=== PATIENT | female | born 1930 | race Caucasian/White ===

== ENCOUNTER 2018-03-25 17:07 | Inpatient (IN) ==
[2018-03-25] MEDS ORDERED: ONDANSETRON 4 MG/2 ML VIAL IV STA (17:55)
[2018-03-25] MEDS ORDERED: ASPIRIN 325 MG TABLET PO STA (17:55)
[2018-03-25] MEDS ORDERED: MORPHINE 4 MG/1 ML VIAL IV STA (17:55)
[2018-03-25] MEDS ORDERED: NITROGLYCERIN 2% OINT 1 INCH/GM PACK TOP STA (17:55)
[2018-03-25] MEDS ORDERED: ALUM/MAG/SIMETH/LIDO VISC 1:1 30 ML BOTTLE PO STA (17:55)
[2018-03-25 18:03] LABS: Basophils # 0.1 10*3/uL (0.0-0.2); Basophils % 1.3 % (0.0-0.8); Eosinophils # 0.6 10*3/uL (0.0-0.87); Eosinophils % 10.8 % (0.00-10.9); Hemoglobin 12.3 GM/DL (12.0-16.0); Immature Granulocytes % 0.4 %; Immature Granulocytes Absolute 0.02 #; Lymphocytes % 18.1 % (21.3-54.2); Mean Corpuscular HGB Conc 32.4 GM/DL (32-36); Mean Corpuscular Hemoglobin 31 PG (27-34); Mean Corpuscular Volume 95.7 FL (87-102); Monocytes # 0.5 10*3/uL (0.11-0.8); Monocytes % 9.5 % (1.7-12.7); Neutrophils # 3.3 10*3/uL (1.4-7.4); Neutrophils % 59.9 % (38.7-73.9); Platelet Count 230 T/CUMM (130-400); Red Blood Count 3.97 MC/CUMM (3.8-5.5); Red Cell Distribution Width 13.2 % (9.3-17.3); White Blood Count 5.6 T/CUMM (4-12)
[2018-03-25 18:14] LABS: PT Patient Result 10.3 SECS
[2018-03-25 18:18] LABS: Alanine Aminotransferase 39 U/L (13-56); Albumin 3.2 G/DL (3.4-5.0); Alkaline Phosphatase 74 U/L (45-117); Aspartate Amino Transferase 29 U/L (0-37); Bilirubin,Total < 0.39 MG/DL (0.2-1.0); Blood Urea Nitrogen 39 MG/DL (7-18); Calcium 8.5 MG/DL (8.5-10.1); Glucose 121 MG/DL (74-106); Osmolality,Calculated 290.3 MOS/KG (273-304); Potassium 3.8 MMOL/L (3.5-5.1); Sodium 141 MMOL/L (136-145); Total Protein 7.2 G/DL (6.4-8.3)
[2018-03-25] MEDS ORDERED: GLYCERIN BOTH EYES PRN (20:15)
[2018-03-25] MEDS ORDERED: MELOXICAM 7.5 MG TABLET PO PRN (20:15)
[2018-03-25] MEDS ORDERED: PROMETHAZINE 25 MG TABLET PO PRN (20:15)
[2018-03-25] MEDS ORDERED: ACETAMINOPHEN 325 MG TABLET PO PRN (20:15)
[2018-03-25] MEDS ORDERED: MORPHINE 4 MG/1 ML VIAL IV PRN (20:15)
[2018-03-25] MEDS ORDERED: ONDANSETRON 4 MG/2 ML VIAL IV PRN (20:15)
[2018-03-25] MEDS ORDERED: NAPHAZOLINE HCL BOTH EYES PRN (20:15)
[2018-03-25] MEDS: LUBIPROSTONE 8 MCG CAPSULE PO SCH (22:10)
[2018-03-25] MEDS: MEMANTINE 5 MG TABLET PO SCH (22:10)
[2018-03-25] MEDS: MAGNESIUM CHLORIDE 64 MG TABLET PO SCH (22:10)
[2018-03-25] MEDS: MULTIVITAMIN (OCUVITE) TABLET PO SCH (22:10)
[2018-03-25] MEDS: ENOXAPARIN 60 MG/0.6 ML SYRINGE SUBCUT SCH (22:11)
[2018-03-25] MEDS: DOCUSATE SODIUM 100 MG CAPSULE PO SCH (22:11)
[2018-03-25] MEDS: POTASSIUM GLUCONATE 500 MG TABLET PO SCH (22:11)
[2018-03-25] MEDS: SODIUM CHLORIDE 0.9% 1,000 ML IV SCH (22:30)
[2018-03-26] MEDS: NITROGLYCERIN 2% OINT 1 INCH/GM PACK TOP SCH ×4 (00:29→17:37)
[2018-03-26 00:43] LABS: Basophils # 0.1 10*3/uL (0.0-0.2); Basophils % 0.9 % (0.0-0.8); Eosinophils # 0.7 10*3/uL (0.0-0.87); Eosinophils % 12.3 % (0.00-10.9); Hematocrit 34.4 VOL% (35.7-47.0); Hemoglobin 11.5 GM/DL (12.0-16.0); Immature Granulocytes % 0.3 %; Immature Granulocytes Absolute 0.02 #; Lymphocytes # 1.2 10*3/uL (1.4-4.0); Lymphocytes % 21.2 % (21.3-54.2); Mean Corpuscular HGB Conc 33.4 GM/DL (32-36); Mean Corpuscular Hemoglobin 31 PG (27-34); Mean Corpuscular Volume 93.7 FL (87-102); Mean Platelet Volume 10.6 FL (9.6-12.0); Monocytes # 0.8 10*3/uL (0.11-0.8); Monocytes % 13.1 % (1.7-12.7); Neutrophils % 52.2 % (38.7-73.9); Platelet Count 228 T/CUMM (130-400); Red Blood Count 3.67 MC/CUMM (3.8-5.5); Red Cell Distribution Width 13.3 % (9.3-17.3); White Blood Count 5.8 T/CUMM (4-12)
[2018-03-26 01:07] LABS: Eosinophils 16 % (0-10); Lymphocytes 30 % (20-55); Segmented Neutrophils 48 % (50-85); Total Cells Counted 100
[2018-03-26 01:09] LABS: Giant Platelets Few; Hypochromasia 1+; Platelet Estimate Normal
[2018-03-26 01:10] LABS: Polychromasia Few
[2018-03-26 01:22] LABS: Alanine Aminotransferase 33 U/L (13-56); Albumin 2.8 G/DL (3.4-5.0); Alkaline Phosphatase 62 U/L (45-117); Aspartate Amino Transferase 21 U/L (0-37); Bilirubin,Total < 0.39 MG/DL (0.2-1.0); Blood Urea Nitrogen 47 MG/DL (7-18); Calcium 8.5 MG/DL (8.5-10.1); Cholesterol 215 MG/DL (50-200); Glucose 115 MG/DL (74-106); HDL Cholesterol 82 MG/DL (40-60); Osmolality,Calculated 295.1 MOS/KG (273-304); Potassium 3.8 MMOL/L (3.5-5.1); Risk Ratio 2.62; Sodium 142 MMOL/L (136-145); Total Protein 6.1 G/DL (6.4-8.3); Triglycerides 29 MG/DL (2-150); VLDL CHOLESTEROL 5.8 MG/DL
[2018-03-26] MEDS: LEVOTHYROXINE 88 MCG TABLET PO SCH (06:07)
[2018-03-26] MEDS ORDERED: KETOROLAC 30 MG/1 ML VIAL IV ONE (08:28)
[2018-03-26] MEDS ORDERED: LEVOFLOXACIN INJ 500 MG in PREMIX 1 EACH IV ONE (09:00)
[2018-03-26] MEDS ORDERED: PANTOPRAZOLE 40 MG TABLET PO SCH (09:00)
[2018-03-26] MEDS ORDERED: Fluticasone/Vilanterol [Breo Ellipta 200-25 Mcg Inh] INH SCH (09:00)
[2018-03-26] MEDS: GEMFIBROZIL 600 MG TABLET PO SCH ×2 (09:57→16:50)
[2018-03-26] MEDS: LUBIPROSTONE 8 MCG CAPSULE PO SCH ×2 (09:58→21:35)
[2018-03-26] MEDS: DOCUSATE SODIUM 100 MG CAPSULE PO SCH ×2 (09:58→21:35)
[2018-03-26] MEDS: FERROUS SULFATE 325 MG TABLET PO SCH (09:58)
[2018-03-26] MEDS: FLUTICASONE 50 MCG NASAL SPRAY 16 GM BOTTLE BOTH NARES SCH (09:58)
[2018-03-26] MEDS: MULTIVITAMIN (CENTRUM) TABLET PO SCH (09:59)
[2018-03-26] MEDS: POTASSIUM GLUCONATE 500 MG TABLET PO SCH ×2 (09:59→21:35)
[2018-03-26] MEDS: MULTIVITAMIN (OCUVITE) TABLET PO SCH ×2 (09:59→21:35)
[2018-03-26] MEDS: ENOXAPARIN 60 MG/0.6 ML SYRINGE SUBCUT SCH ×2 (09:59→21:34)
[2018-03-26] MEDS: MEMANTINE 5 MG TABLET PO SCH ×2 (09:59→21:35)
[2018-03-26] MEDS: PANTOPRAZOLE 40 MG TABLET PO SCH (10:00)
[2018-03-26] MEDS: MAGNESIUM CHLORIDE 64 MG TABLET PO SCH ×2 (10:00→21:35)
[2018-03-26] MEDS: FUROSEMIDE 20 MG/2 ML VIAL IV SCH ×2 (10:08→16:50)
[2018-03-26] MEDS: ASPIRIN EC 81 MG TABLET PO SCH (13:17)
[2018-03-26] MEDS: SODIUM CHLORIDE 0.9% 1,000 ML IV SCH (21:35)
[2018-03-26] MEDS: CLOPIDOGREL 75 MG TABLET PO SCH (21:35)
[2018-03-27] MEDS: NITROGLYCERIN 2% OINT 1 INCH/GM PACK TOP SCH ×4 (01:21→17:32)
[2018-03-27 05:43] LABS: Basophils % 0.6 % (0.0-0.8); Eosinophils # 0.9 10*3/uL (0.0-0.87); Eosinophils % 17.1 % (0.00-10.9); Hemoglobin 9.3 GM/DL (12.0-16.0); Immature Granulocytes % 0.2 %; Immature Granulocytes Absolute 0.01 #; Lymphocytes # 0.9 10*3/uL (1.4-4.0); Lymphocytes % 17.5 % (21.3-54.2); Mean Corpuscular HGB Conc 33.2 GM/DL (32-36); Mean Corpuscular Hemoglobin 31 PG (27-34); Mean Corpuscular Volume 94.3 FL (87-102); Mean Platelet Volume 11.3 FL (9.6-12.0); Monocytes # 0.6 10*3/uL (0.11-0.8); Monocytes % 12.5 % (1.7-12.7); Neutrophils # 2.6 10*3/uL (1.4-7.4); Neutrophils % 52.1 % (38.7-73.9); Platelet Count 160 T/CUMM (130-400); Red Blood Count 2.97 MC/CUMM (3.8-5.5); Red Cell Distribution Width 13.4 % (9.3-17.3)
[2018-03-27] MEDS: LEVOTHYROXINE 88 MCG TABLET PO SCH (06:08)
[2018-03-27 06:19] LABS: Calcium 8.5 MG/DL (8.5-10.1); Osmolality,Calculated 300.7 MOS/KG (273-304); Potassium 3.7 MMOL/L (3.5-5.1)
[2018-03-27 07:35] LABS: Band Neutrophils 1 % (0-10); Eosinophils 7 % (0-10); Lymphocytes 11 % (20-55); Platelet Estimate Adequate; Polychromasia Slight; Segmented Neutrophils 77 % (50-85); Total Cells Counted 100
[2018-03-27] MEDS ORDERED: REGADENOSON 0.4 MG/5 ML SYRINGE IV ONE (09:02)
[2018-03-27] MEDS: FUROSEMIDE 20 MG/2 ML VIAL IV SCH (09:44)
[2018-03-27] MEDS: MULTIVITAMIN (OCUVITE) TABLET PO SCH ×2 (09:44→21:17)
[2018-03-27] MEDS: POTASSIUM GLUCONATE 500 MG TABLET PO SCH ×2 (09:44→21:17)
[2018-03-27] MEDS: GEMFIBROZIL 600 MG TABLET PO SCH ×2 (09:44→16:22)
[2018-03-27] MEDS: DOCUSATE SODIUM 100 MG CAPSULE PO SCH ×2 (09:44→21:18)
[2018-03-27] MEDS: MEMANTINE 5 MG TABLET PO SCH ×2 (09:44→21:17)
[2018-03-27] MEDS: MAGNESIUM CHLORIDE 64 MG TABLET PO SCH ×2 (09:45→21:17)
[2018-03-27] MEDS: PANTOPRAZOLE 40 MG TABLET PO SCH (09:45)
[2018-03-27] MEDS: MULTIVITAMIN (CENTRUM) TABLET PO SCH (09:45)
[2018-03-27] MEDS: LEVOFLOXACIN INJ 250 MG in PREMIX 1 EACH IV SCH (09:45)
[2018-03-27] MEDS: LUBIPROSTONE 8 MCG CAPSULE PO SCH ×2 (09:45→21:20)
[2018-03-27] MEDS: FERROUS SULFATE 325 MG TABLET PO SCH (09:45)
[2018-03-27] MEDS: FLUTICASONE 50 MCG NASAL SPRAY 16 GM BOTTLE BOTH NARES SCH (09:46)
[2018-03-27] MEDS: ASPIRIN EC 81 MG TABLET PO SCH (12:09)
[2018-03-27] MEDS: METOPROLOL SUCCINATE XL 25 MG TABLET PO SCH (16:22)
[2018-03-27] MEDS ORDERED: ENOXAPARIN 30 MG/0.3 ML SYRINGE SUBCUT SCH (21:00)
[2018-03-27] MEDS: CLOPIDOGREL 75 MG TABLET PO SCH (21:18)
[2018-03-28] MEDS: NITROGLYCERIN 2% OINT 1 INCH/GM PACK TOP SCH ×3 (00:01→12:33)
[2018-03-28 03:31] LABS: Basophils % 0.5 % (0.0-0.8); Eosinophils # 0.8 10*3/uL (0.0-0.87); Eosinophils % 12.7 % (0.00-10.9); Hemoglobin 9.3 GM/DL (12.0-16.0); Immature Granulocytes % 0.3 %; Immature Granulocytes Absolute 0.02 #; Lymphocytes % 16.2 % (21.3-54.2); Mean Corpuscular HGB Conc 33.2 GM/DL (32-36); Mean Corpuscular Hemoglobin 31 PG (27-34); Mean Platelet Volume 11.3 FL (9.6-12.0); Monocytes # 0.7 10*3/uL (0.11-0.8); Neutrophils # 3.5 10*3/uL (1.4-7.4); Neutrophils % 59.3 % (38.7-73.9); Platelet Count 172 T/CUMM (130-400); Red Blood Count 3.01 MC/CUMM (3.8-5.5); Red Cell Distribution Width 13.4 % (9.3-17.3); White Blood Count 5.9 T/CUMM (4-12)
[2018-03-28 03:57] LABS: Calcium 8.7 MG/DL (8.5-10.1); Osmolality,Calculated 299.7 MOS/KG (273-304); Potassium 3.5 MMOL/L (3.5-5.1)
[2018-03-28 05:52] LABS: Band Neutrophils 2 % (0-10); Eosinophils 13 % (0-10); Lymphocytes 12 % (20-55); Myelocytes 2 %; Segmented Neutrophils 64 % (50-85)
[2018-03-28 05:57] LABS: Platelet Estimate Normal; Total Cells Counted 100
[2018-03-28] MEDS: LEVOTHYROXINE 88 MCG TABLET PO SCH (06:29)
[2018-03-28] MEDS: LEVOFLOXACIN INJ 250 MG in PREMIX 1 EACH IV SCH (08:39)
[2018-03-28] MEDS: METOPROLOL SUCCINATE XL 25 MG TABLET PO SCH (08:40)
[2018-03-28] MEDS: MULTIVITAMIN (OCUVITE) TABLET PO SCH (08:40)
[2018-03-28] MEDS: MULTIVITAMIN (CENTRUM) TABLET PO SCH (08:40)
[2018-03-28] MEDS: MEMANTINE 5 MG TABLET PO SCH (08:40)
[2018-03-28] MEDS: FLUTICASONE 50 MCG NASAL SPRAY 16 GM BOTTLE BOTH NARES SCH (08:41)
[2018-03-28] MEDS: DOCUSATE SODIUM 100 MG CAPSULE PO SCH (08:41)
[2018-03-28] MEDS: GEMFIBROZIL 600 MG TABLET PO SCH ×2 (08:41→16:30)
[2018-03-28] MEDS: LUBIPROSTONE 8 MCG CAPSULE PO SCH (08:41)
[2018-03-28] MEDS: POTASSIUM GLUCONATE 500 MG TABLET PO SCH (08:41)
[2018-03-28] MEDS: MAGNESIUM CHLORIDE 64 MG TABLET PO SCH (08:41)
[2018-03-28] MEDS: PANTOPRAZOLE 40 MG TABLET PO SCH (08:41)
[2018-03-28] MEDS: FERROUS SULFATE 325 MG TABLET PO SCH (08:41)
[2018-03-28] MEDS ORDERED: FUROSEMIDE 20 MG TABLET PO SCH (09:00)
[2018-03-28] MEDS: ASPIRIN EC 81 MG TABLET PO SCH (12:34)
[2018-03-28 16:26] VITALS: BP 122/65
== END 2018-03-28 17:53 | disposition home or self-care (01) | DRG 313 ==
LOC: EDBD → EDUNIT# → N.ED 17:07 → N.EDINP 19:02 → N.TELES 20:43
PROVIDERS: ADMIT Internal Medicine; ATTEND Internal Medicine

== ENCOUNTER 2018-11-14 18:49 | Observation (INO) ==
[2018-11-14] MEDS ORDERED: MORPHINE 4 MG/1 ML VIAL IV STA (19:11)
[2018-11-14] MEDS ORDERED: ONDANSETRON 4 MG/2 ML VIAL IV STA (19:11)
[2018-11-14 19:24] LABS: Basophils % 0.9 % (0.0-0.8); Eosinophils # 0.3 10*3/uL (0.0-0.87); Eosinophils % 7.6 % (0.00-10.9); Hematocrit 31.8 VOL% (35.7-47.0); Hemoglobin 10.2 GM/DL (12.0-16.0); Immature Granulocytes % 0.2 %; Immature Granulocytes Absolute 0.01 #; Lymphocytes % 23.1 % (21.3-54.2); Mean Corpuscular HGB Conc 32.1 GM/DL (32-36); Mean Corpuscular Hemoglobin 30 PG (27-34); Mean Corpuscular Volume 94.1 FL (87-102); Mean Platelet Volume 10.2 FL (9.6-12.0); Monocytes # 0.6 10*3/uL (0.11-0.8); Monocytes % 12.6 % (1.7-12.7); Neutrophils # 2.4 10*3/uL (1.4-7.4); Neutrophils % 55.6 % (38.7-73.9); Platelet Count 193 T/CUMM (130-400); Red Blood Count 3.38 MC/CUMM (3.8-5.5); White Blood Count 4.4 T/CUMM (4-12)
[2018-11-14 19:28] LABS: Apearance,Urine CLEAR (Clear); Bilirubin,Urine Negative (Negative); Blood, Urine Negative (Negative); Glucose,Urine (UA) Negative (Negative); Ketones,Urine Negative (Negative); Nitrite,Urine Negative (Negative); Protein,Urine Negative; RBC,Urine 1 /HPF (0-4); Squamous Epithelial Cell,Urine Occasional /HPF (0-10); Urine Color Straw (Yellow); Urine Specific Gravity 1.004 (1.001-1.035); Urine Urobilinogen < 2.0 EU/DL (0.2-1.0); WBC,Urine 2 /HPF (0-6)
[2018-11-14 19:46] LABS: Albumin 3.3 G/DL (3.4-5.0); Bilirubin,Total 0.4 MG/DL (0.2-1.0); Calcium 9.3 MG/DL (8.5-10.1); Osmolality,Calculated 279.4 MOS/KG (273-304); Potassium 3.8 MMOL/L (3.5-5.1); Total Protein 7.5 G/DL (6.4-8.3)
[2018-11-14] MEDS ORDERED: ONDANSETRON 4 MG/2 ML VIAL IV PRN (21:40)
[2018-11-14] MEDS ORDERED: ACETAMINOPHEN 325 MG TABLET PO PRN (21:40)
[2018-11-14] MEDS: oxyCODONE/ACETAMINOPHEN 5-325 MG TABLET PO PRN (22:33)
[2018-11-15 01:12] LABS: Basophils % 0.8 % (0.0-0.8); Eosinophils # 0.4 10*3/uL (0.0-0.87); Eosinophils % 9.4 % (0.00-10.9); Hematocrit 28.2 VOL% (35.7-47.0); Hemoglobin 8.8 GM/DL (12.0-16.0); Immature Granulocytes % 0.5 %; Immature Granulocytes Absolute 0.02 #; Lymphocytes # 0.9 10*3/uL (1.4-4.0); Lymphocytes % 23.1 % (21.3-54.2); Mean Corpuscular HGB Conc 31.2 GM/DL (32-36); Mean Corpuscular Hemoglobin 30 PG (27-34); Mean Corpuscular Volume 95.3 FL (87-102); Mean Platelet Volume 10.6 FL (9.6-12.0); Monocytes # 0.5 10*3/uL (0.11-0.8); Monocytes % 12.9 % (1.7-12.7); Neutrophils % 53.3 % (38.7-73.9); Platelet Count 178 T/CUMM (130-400); Red Blood Count 2.96 MC/CUMM (3.8-5.5); White Blood Count 3.8 T/CUMM (4-12)
[2018-11-15 01:25] LABS: Albumin 2.8 G/DL (3.4-5.0); Bilirubin,Total 0.8 MG/DL (0.2-1.0); Calcium 8.6 MG/DL (8.5-10.1); Osmolality,Calculated 282.3 MOS/KG (273-304); Potassium 3.7 MMOL/L (3.5-5.1); Total Protein 6.1 G/DL (6.4-8.3)
[2018-11-15] MEDS: PANTOPRAZOLE 40 MG TABLET PO SCH (08:45)
[2018-11-15] MEDS: ASPIRIN EC 81 MG TABLET PO SCH (12:30)
[2018-11-15] MEDS: MULTIVITAMIN (CENTRUM) TABLET PO SCH (12:30)
[2018-11-15] MEDS: GEMFIBROZIL 600 MG TABLET PO SCH (16:13)
[2018-11-15] MEDS ORDERED: CLOPIDOGREL 75 MG TABLET PO SCH (19:00)
[2018-11-15] MEDS: LUBIPROSTONE 8 MCG CAPSULE PO SCH (20:36)
[2018-11-15] MEDS: CILOSTAZOL 50 MG TABLET PO SCH (20:36)
[2018-11-15] MEDS: oxyCODONE/ACETAMINOPHEN 5-325 MG TABLET PO PRN (20:36)
[2018-11-15] MEDS: CLOPIDOGREL 75 MG TABLET PO SCH (20:36)
[2018-11-16] MEDS: LEVOTHYROXINE 88 MCG TABLET PO SCH (06:10)
[2018-11-16] MEDS: PANTOPRAZOLE 40 MG TABLET PO SCH (08:12)
[2018-11-16] MEDS: CILOSTAZOL 50 MG TABLET PO SCH ×2 (08:12→20:57)
[2018-11-16] MEDS: ROSUVASTATIN 20 MG TABLET PO SCH (08:12)
[2018-11-16] MEDS: FERROUS SULFATE 325 MG TABLET PO SCH (08:12)
[2018-11-16] MEDS: GEMFIBROZIL 600 MG TABLET PO SCH ×2 (08:12→16:25)
[2018-11-16] MEDS: LUBIPROSTONE 8 MCG CAPSULE PO SCH ×2 (08:12→20:57)
[2018-11-16] MEDS: MONTELUKAST 10 MG TABLET PO SCH (08:12)
[2018-11-16] MEDS: FLUTICASONE 50 MCG NASAL SPRAY 16 GM BOTTLE BOTH NARES SCH (08:13)
[2018-11-16] MEDS ORDERED: VILANTEROL INH SCH (09:00)
[2018-11-16] MEDS ORDERED: FLUTICASONE INH SCH (09:00)
[2018-11-16] MEDS: ASPIRIN EC 81 MG TABLET PO SCH (11:07)
[2018-11-16] MEDS: MULTIVITAMIN (CENTRUM) TABLET PO SCH (11:07)
[2018-11-16] MEDS: CLOPIDOGREL 75 MG TABLET PO SCH (20:57)
[2018-11-17 04:37] LABS: Basophils % 0.7 % (0.0-0.8); Eosinophils # 0.6 10*3/uL (0.0-0.87); Eosinophils % 13.6 % (0.00-10.9); Hematocrit 29.2 VOL% (35.7-47.0); Hemoglobin 9.4 GM/DL (12.0-16.0); Immature Granulocytes % 0.2 %; Immature Granulocytes Absolute 0.01 #; Lymphocytes % 21.6 % (21.3-54.2); Mean Corpuscular HGB Conc 32.2 GM/DL (32-36); Mean Corpuscular Hemoglobin 30 PG (27-34); Mean Corpuscular Volume 94.2 FL (87-102); Mean Platelet Volume 10.6 FL (9.6-12.0); Monocytes # 0.5 10*3/uL (0.11-0.8); Monocytes % 12.3 % (1.7-12.7); Neutrophils # 2.3 10*3/uL (1.4-7.4); Neutrophils % 51.6 % (38.7-73.9); Platelet Count 181 T/CUMM (130-400); White Blood Count 4.4 T/CUMM (4-12)
[2018-11-17 04:48] LABS: Calcium 8.4 MG/DL (8.5-10.1); Osmolality,Calculated 279.5 MOS/KG (273-304); Potassium 3.5 MMOL/L (3.5-5.1)
[2018-11-17 05:03] LABS: Eosinophils 12 % (0-10); Hypochromasia 1+; Lymphocytes 16 % (20-55); Platelet Estimate Adequate; Segmented Neutrophils 61 % (50-85); Total Cells Counted 100
[2018-11-17] MEDS: LEVOTHYROXINE 88 MCG TABLET PO SCH (06:15)
[2018-11-17 08:25] VITALS: BP 148/91
[2018-11-17] MEDS: MONTELUKAST 10 MG TABLET PO SCH (10:17)
[2018-11-17] MEDS: FERROUS SULFATE 325 MG TABLET PO SCH (10:17)
[2018-11-17] MEDS: LUBIPROSTONE 8 MCG CAPSULE PO SCH (10:17)
[2018-11-17] MEDS: CILOSTAZOL 50 MG TABLET PO SCH (10:17)
[2018-11-17] MEDS: PANTOPRAZOLE 40 MG TABLET PO SCH (10:17)
[2018-11-17] MEDS: FLUTICASONE 50 MCG NASAL SPRAY 16 GM BOTTLE BOTH NARES SCH (10:18)
[2018-11-17] MEDS: GEMFIBROZIL 600 MG TABLET PO SCH (10:18)
[2018-11-17] MEDS: ROSUVASTATIN 20 MG TABLET PO SCH (10:18)
== END 2018-11-17 11:18 | disposition home or self-care (01) ==
LOC: EDBD → EDUNIT# → N.EDINP 18:49 → N.ED 18:49 → N.TELES 21:11
PROVIDERS: ADMIT Internal Medicine; ATTEND Internal Medicine

== ENCOUNTER 2019-02-08 14:52 | Inpatient (IN) ==
[2019-02-08] MEDS ORDERED: NITROGLYCERIN 2% OINT 1 INCH/GM PACK TOP STA (15:14)
[2019-02-08] MEDS ORDERED: ASPIRIN 325 MG TABLET PO STA (15:14)
[2019-02-08] MEDS ORDERED: ALUM/MAG/SIMETH/LIDO VISC 1:1 30 ML BOTTLE PO STA (15:14)
[2019-02-08] MEDS ORDERED: MORPHINE 4 MG/1 ML VIAL IV STA (15:14)
[2019-02-08] MEDS ORDERED: ONDANSETRON 4 MG/2 ML VIAL IV STA (15:14)
[2019-02-08 17:25] LABS: Basophils # 0.1 10*3/uL (0.0-0.2); Eosinophils # 0.4 10*3/uL (0.0-0.87); Eosinophils % 8.1 % (0.00-10.9); Hemoglobin 10.9 GM/DL (12.0-16.0); Immature Granulocytes % 0.4 %; Immature Granulocytes Absolute 0.02 #; Lymphocytes % 19.2 % (21.3-54.2); Mean Corpuscular HGB Conc 30.3 GM/DL (32-36); Mean Corpuscular Hemoglobin 30 PG (27-34); Mean Corpuscular Volume 97.8 FL (87-102); Mean Platelet Volume 9.5 FL (9.6-12.0); Monocytes # 0.5 10*3/uL (0.11-0.8); Monocytes % 9.3 % (1.7-12.7); Neutrophils # 3.2 10*3/uL (1.4-7.4); Platelet Count 222 T/CUMM (130-400); Red Blood Count 3.68 MC/CUMM (3.8-5.5); Red Cell Distribution Width 12.8 % (9.3-17.3); White Blood Count 5.2 T/CUMM (4-12)
[2019-02-08 17:36] LABS: PT Patient Result 10.4 SECS
[2019-02-08 17:48] LABS: Albumin 3.2 G/DL (3.4-5.0); Bilirubin,Total 0.4 MG/DL (0.2-1.0); Calcium 8.8 MG/DL (8.5-10.1); Osmolality,Calculated 280.5 MOS/KG (273-304); Potassium 3.8 MMOL/L (3.5-5.1); Total Protein 6.6 G/DL (6.4-8.3)
[2019-02-08] MEDS ORDERED: ONDANSETRON 4 MG/2 ML VIAL IV PRN (19:07)
[2019-02-08] MEDS ORDERED: ACETAMINOPHEN 325 MG TABLET PO PRN (19:07)
[2019-02-08] MEDS ORDERED: PROMETHAZINE 25 MG TABLET PO PRN (19:11)
[2019-02-08] MEDS ORDERED: NAPHAZOLINE HCL BOTH EYES PRN (19:11)
[2019-02-08] MEDS ORDERED: GLYCERIN BOTH EYES PRN (19:11)
[2019-02-08 19:57] LABS: Troponin I 0.021 NG/ML (0.00-0.045)
[2019-02-08] MEDS: MAGNESIUM CHLORIDE 64 MG TABLET PO SCH (22:16)
[2019-02-08] MEDS: MONTELUKAST 10 MG TABLET PO SCH (22:16)
[2019-02-08] MEDS: LUBIPROSTONE 8 MCG CAPSULE PO SCH (22:16)
[2019-02-08] MEDS: MULTIVITAMIN (OCUVITE) TABLET PO SCH (22:17)
[2019-02-09 01:06] LABS: Troponin I 0.025 NG/ML (0.00-0.045)
[2019-02-09 04:43] LABS: Basophils # 0.1 10*3/uL (0.0-0.2); Basophils % 0.9 % (0.0-0.8); Eosinophils # 0.8 10*3/uL (0.0-0.87); Eosinophils % 14.3 % (0.00-10.9); Hematocrit 29.8 VOL% (35.7-47.0); Hemoglobin 9.5 GM/DL (12.0-16.0); Immature Granulocytes % 0.7 %; Immature Granulocytes Absolute 0.04 #; Lymphocytes % 17.4 % (21.3-54.2); Mean Corpuscular HGB Conc 31.9 GM/DL (32-36); Mean Corpuscular Hemoglobin 30 PG (27-34); Mean Corpuscular Volume 94.6 FL (87-102); Mean Platelet Volume 10.4 FL (9.6-12.0); Monocytes # 0.7 10*3/uL (0.11-0.8); Monocytes % 12.1 % (1.7-12.7); Neutrophils % 54.6 % (38.7-73.9); Platelet Count 204 T/CUMM (130-400); Red Blood Count 3.15 MC/CUMM (3.8-5.5); Red Cell Distribution Width 12.9 % (9.3-17.3); White Blood Count 5.5 T/CUMM (4-12)
[2019-02-09 04:52] LABS: Calcium 8.5 MG/DL (8.5-10.1); Osmolality,Calculated 279.7 MOS/KG (273-304); Potassium 3.5 MMOL/L (3.5-5.1); Risk Ratio 2.28; Thyroid Stimulating Hormone 2.61 uIU/ml (0.358-3.74); VLDL CHOLESTEROL 7.4 MG/DL
[2019-02-09 06:14] LABS: Eosinophils 14 % (0-10); Hypochromasia Slight; Lymphocytes 17 % (20-55); Platelet Estimate Adequate; Polychromasia Few; Segmented Neutrophils 67 % (50-85); Total Cells Counted 100
[2019-02-09] MEDS: LEVOTHYROXINE 88 MCG TABLET PO SCH (07:03)
[2019-02-09 07:25] LABS: Troponin I 0.028 NG/ML (0.00-0.045)
[2019-02-09] MEDS: RIVASTIGMINE 4.6 MG/24 HR PATCH TRANSDERM SCH (08:40)
[2019-02-09] MEDS: FERROUS SULFATE 325 MG TABLET PO SCH (08:40)
[2019-02-09] MEDS: PANTOPRAZOLE 40 MG TABLET PO SCH (08:40)
[2019-02-09] MEDS: GEMFIBROZIL 600 MG TABLET PO SCH ×2 (08:40→18:30)
[2019-02-09] MEDS: LUBIPROSTONE 8 MCG CAPSULE PO SCH ×2 (08:41→22:42)
[2019-02-09] MEDS: FLUTICASONE 50 MCG NASAL SPRAY 16 GM BOTTLE BOTH NARES SCH (08:42)
[2019-02-09] MEDS: MULTIVITAMIN (OCUVITE) TABLET PO SCH ×2 (08:42→22:42)
[2019-02-09] MEDS: ROSUVASTATIN 20 MG TABLET PO SCH (08:42)
[2019-02-09] MEDS: MAGNESIUM CHLORIDE 64 MG TABLET PO SCH ×2 (08:42→22:42)
[2019-02-09] MEDS ORDERED: Fluticasone/Vilanterol [Breo Ellipta 200-25 Mcg Inh] INH SCH (09:00)
[2019-02-09] MEDS ORDERED: MULTIVITAMIN (CENTRUM) TABLET PO SCH (12:00)
[2019-02-09] MEDS ORDERED: ASPIRIN EC 81 MG TABLET PO SCH (12:00)
[2019-02-09] MEDS ORDERED: cefTRIAXone 2,000 MG in SYRINGE 1 EACH IV SCH (14:00)
[2019-02-09] MEDS ORDERED: ALBUTEROL/IPRATROPIUM 3 ML NEB RESP TX PRN (14:07)
[2019-02-09] MEDS ORDERED: AZITHROMYCIN INJ 500 MG in SODIUM CHLORIDE 0.9% 250 ML IV SCH (14:30)
[2019-02-09 18:20] LABS: Apearance,Urine CLEAR (Clear); Bacteria,Urine Occasional /HPF (Few); Bilirubin,Urine Negative (Negative); Blood, Urine Negative (Negative); Glucose,Urine (UA) Negative (Negative); Ketones,Urine Negative (Negative); Nitrite,Urine Negative (Negative); Protein,Urine Negative; RBC,Urine <1 /HPF (0-4); Squamous Epithelial Cell,Urine Occasional /HPF (0-10); Urine Color Yellow (Yellow); Urine Specific Gravity 1.012 (1.001-1.035); Urine Urobilinogen < 2.0 EU/DL (0.2-1.0); WBC,Urine 3 /HPF (0-6)
[2019-02-09] MEDS ORDERED: CLOPIDOGREL 75 MG TABLET PO SCH (19:00)
[2019-02-09] MEDS: ALBUTEROL 0.63 MG/3 ML NEB RESP TX SCH (20:05)
[2019-02-09] MEDS: MONTELUKAST 10 MG TABLET PO SCH (22:42)
[2019-02-10] MEDS: ALBUTEROL 0.63 MG/3 ML NEB RESP TX SCH ×2 (00:30→07:14)
[2019-02-10 04:46] LABS: Basophils % 0.6 % (0.0-0.8); Eosinophils # 0.9 10*3/uL (0.0-0.87); Eosinophils % 17.8 % (0.00-10.9); Hematocrit 25.7 VOL% (35.7-47.0); Hemoglobin 8.1 GM/DL (12.0-16.0); Immature Granulocytes % 0.2 %; Immature Granulocytes Absolute 0.01 #; Lymphocytes # 0.9 10*3/uL (1.4-4.0); Lymphocytes % 18.2 % (21.3-54.2); Mean Corpuscular HGB Conc 31.5 GM/DL (32-36); Mean Corpuscular Hemoglobin 30 PG (27-34); Mean Corpuscular Volume 95.9 FL (87-102); Mean Platelet Volume 10.7 FL (9.6-12.0); Monocytes # 0.6 10*3/uL (0.11-0.8); Monocytes % 12.6 % (1.7-12.7); Neutrophils # 2.6 10*3/uL (1.4-7.4); Neutrophils % 50.6 % (38.7-73.9); Platelet Count 155 T/CUMM (130-400); Red Blood Count 2.68 MC/CUMM (3.8-5.5); Red Cell Distribution Width 12.8 % (9.3-17.3); White Blood Count 5.1 T/CUMM (4-12)
[2019-02-10 05:07] LABS: Calcium 8.1 MG/DL (8.5-10.1); Potassium 3.9 MMOL/L (3.5-5.1)
[2019-02-10 05:32] LABS: Eosinophils 13 % (0-10); Lymphocytes 17 % (20-55); Platelet Estimate Adequate; Polychromasia Few; Segmented Neutrophils 61 % (50-85); Total Cells Counted 100
[2019-02-10] MEDS: LEVOTHYROXINE 88 MCG TABLET PO SCH (06:43)
[2019-02-10 08:12] VITALS: BP 150/75
[2019-02-10] MEDS: RIVASTIGMINE 4.6 MG/24 HR PATCH TRANSDERM SCH (08:12)
[2019-02-10] MEDS: FERROUS SULFATE 325 MG TABLET PO SCH (08:13)
[2019-02-10] MEDS: ROSUVASTATIN 20 MG TABLET PO SCH (08:13)
[2019-02-10] MEDS: FLUTICASONE 50 MCG NASAL SPRAY 16 GM BOTTLE BOTH NARES SCH (08:14)
[2019-02-10] MEDS: MULTIVITAMIN (OCUVITE) TABLET PO SCH (08:14)
[2019-02-10] MEDS: MAGNESIUM CHLORIDE 64 MG TABLET PO SCH (08:14)
[2019-02-10] MEDS: LUBIPROSTONE 8 MCG CAPSULE PO SCH (08:14)
[2019-02-10] MEDS: PANTOPRAZOLE 40 MG TABLET PO SCH (08:14)
[2019-02-10] MEDS: GEMFIBROZIL 600 MG TABLET PO SCH (08:14)
== END 2019-02-10 12:45 | disposition home or self-care (01) | DRG 194 ==
LOC: EDBD → EDUNIT# → N.ED 14:52 → N.EDINP 19:06 → N.4E 19:47
PROVIDERS: ADMIT Hospitalist; ATTEND Hospitalist

== ENCOUNTER 2019-03-10 16:37 | Observation (INO) ==
[2019-03-10 17:54] LABS: Eosinophils # 0.4 10*3/uL (0.0-0.87); Eosinophils % 10.6 % (0.00-10.9); Hematocrit 31.1 VOL% (35.7-47.0); Hemoglobin 9.8 GM/DL (12.0-16.0); Immature Granulocytes % 0.3 %; Immature Granulocytes Absolute 0.01 #; Lymphocytes # 0.7 10*3/uL (1.4-4.0); Mean Corpuscular HGB Conc 31.5 GM/DL (32-36); Mean Corpuscular Volume 96.3 FL (87-102); Mean Platelet Volume 10.3 FL (9.6-12.0); Monocytes % 10.1 % (1.7-12.7); Platelet Count 156 T/CUMM (130-400); Red Blood Count 3.23 MC/CUMM (3.8-5.5); White Blood Count 3.9 T/CUMM (4-12)
[2019-03-10 18:05] LABS: PT Patient Result 10.5 SECS; Partial Thromboplastin Time 24.3 SECS (0-40)
[2019-03-10 18:08] LABS: Apearance,Urine CLEAR (Clear); Bilirubin,Urine Negative (Negative); Blood, Urine Negative (Negative); Glucose,Urine (UA) Negative (Negative); Ketones,Urine Negative (Negative); Nitrite,Urine Negative (Negative); Protein,Urine Negative; RBC,Urine <1 /HPF (0-4); Urine Color Yellow (Yellow); Urine Specific Gravity 1.008 (1.001-1.035); Urine Urobilinogen < 2.0 EU/DL (0.2-1.0); WBC,Urine <1 /HPF (0-6)
[2019-03-10] MEDS ORDERED: KETOROLAC 30 MG/1 ML VIAL ONE (18:08)
[2019-03-10] MEDS ORDERED: KETOROLAC 30 MG/1 ML VIAL IV STA (18:15)
[2019-03-10 18:16] LABS: Alanine Aminotransferase 28 U/L (13-56); Albumin 3.4 G/DL (3.4-5.0); Alkaline Phosphatase 72 U/L (45-117); Amylase 182 U/L (25-115); Aspartate Amino Transferase 26 U/L (0-37); Blood Urea Nitrogen 21 MG/DL (7-18); Calcium 9.3 MG/DL (8.5-10.1); Glucose 91 MG/DL (74-106); Osmolality,Calculated 283.3 MOS/KG (273-304); Total Protein 7.1 G/DL (6.4-8.3); Troponin I 0.039 NG/ML (0.00-0.045)
[2019-03-10 18:25] LABS: Free T4 (Free Thyroxine) 1.17 NG/DL (0.76-1.46); Thyroid Stimulating Hormone 1.34 uIU/ml (0.358-3.74)
[2019-03-10] MEDS ORDERED: ONDANSETRON 4 MG/2 ML VIAL IV PRN (19:14)
[2019-03-10] MEDS ORDERED: ACETAMINOPHEN 325 MG TABLET PO PRN (19:14)
[2019-03-10] MEDS ORDERED: MORPHINE 4 MG/1 ML VIAL IV PRN (21:19)
[2019-03-10] MEDS ORDERED: ALUMINUM/MAGNES/SIMETH MAX STR 30 ML UDCUP PO PRN (21:19)
[2019-03-10] MEDS: traMADol 50 MG TABLET PO PRN (21:59)
[2019-03-10] MEDS ORDERED: PROMETHAZINE 25 MG TABLET PO PRN (22:40)
[2019-03-11] MEDS: traMADol 50 MG TABLET PO PRN (05:23)
[2019-03-11] MEDS ORDERED: LEVOTHYROXINE 88 MCG TABLET PO SCH (06:00)
[2019-03-11] MEDS ORDERED: [UNRECOGNIZED DRUG - OTHER] BOTH EYES PRN (08:34)
[2019-03-11] MEDS ORDERED: LACTULOSE 20 GM/30 ML UDCUP PO SCH (09:00)
[2019-03-11] MEDS ORDERED: MULTIVITAMIN (OCUVITE) TABLET PO SCH (09:00)
[2019-03-11] MEDS ORDERED: ROSUVASTATIN 20 MG TABLET PO SCH (09:00)
[2019-03-11] MEDS ORDERED: FERROUS SULFATE 325 MG TABLET PO SCH (09:00)
[2019-03-11] MEDS ORDERED: FLUTICASONE VILANTEROL INH SCH (09:00)
[2019-03-11] MEDS ORDERED: MAGNESIUM CHLORIDE 64 MG TABLET PO SCH (09:00)
[2019-03-11] MEDS ORDERED: FLUTICASONE 50 MCG NASAL SPRAY 16 GM BOTTLE BOTH NARES SCH (09:00)
[2019-03-11] MEDS ORDERED: RIVASTIGMINE 4.6 MG/24 HR PATCH TRANSDERM SCH (09:00)
[2019-03-11] MEDS ORDERED: POTASSIUM GLUCONATE 500 MG TABLET PO SCH (09:00)
[2019-03-11] MEDS ORDERED: PANTOPRAZOLE 40 MG TABLET PO SCH ×2 (09:00)
[2019-03-11] MEDS ORDERED: ASPIRIN EC 81 MG TABLET PO SCH (12:00)
[2019-03-11] MEDS ORDERED: MULTIVITAMIN (CENTRUM) TABLET PO SCH (12:00)
[2019-03-11 12:32] VITALS: BP 164/84
[2019-03-11] MEDS ORDERED: GEMFIBROZIL 600 MG TABLET PO SCH (17:00)
[2019-03-11] MEDS ORDERED: MONTELUKAST 10 MG TABLET PO SCH (19:00)
[2019-03-11] MEDS ORDERED: CLOPIDOGREL 75 MG TABLET PO SCH (19:00)
== END 2019-03-11 14:18 | disposition home health service (06) ==
LOC: EDUNIT# → EDBD → N.EDINP 16:37 → N.ED 16:37 → N.TELEN 19:49
PROVIDERS: ADMIT Internal Medicine; ATTEND Internal Medicine

== ENCOUNTER 2019-10-21 21:18 | Inpatient (IN) ==
[2019-10-21] MEDS ORDERED: LACTATED RINGERS 500 ML IV ONE (22:02)
[2019-10-21 22:49] LABS: Basophils % 0.3 % (0.0-0.8); Eosinophils # 0.1 10*3/uL (0.0-0.87); Eosinophils % 2.1 % (0.00-10.9); Hematocrit 34.6 VOL% (35.7-47.0); Immature Granulocytes % 0.6 %; Immature Granulocytes Absolute 0.04 #; Lymphocytes # 0.5 10*3/uL (1.4-4.0); Lymphocytes % 6.8 % (21.3-54.2); Mean Corpuscular HGB Conc 31.8 GM/DL (32-36); Mean Corpuscular Volume 97.5 FL (87-102); Mean Platelet Volume 10.2 FL (9.6-12.0); Monocytes % 6.5 % (1.7-12.7); Neutrophils % 83.7 % (38.7-73.9); Platelet Count 174 T/CUMM (130-400); Red Blood Count 3.55 MC/CUMM (3.8-5.5); Red Cell Distribution Width 12.6 % (9.3-17.3); White Blood Count 6.8 T/CUMM (4-12)
[2019-10-21 23:08] LABS: Alanine Aminotransferase 30 U/L (13-56); Albumin 3.6 G/DL (3.4-5.0); Alkaline Phosphatase 90 U/L (45-117); Aspartate Amino Transferase 27 U/L (0-37); Bilirubin,Total < 0.39 MG/DL (0.2-1.0); Blood Urea Nitrogen 22 MG/DL (7-18); Calcium 8.9 MG/DL (8.5-10.1); Estimated Glom Filtration Rate 55 ML/MIN; Glucose 138 MG/DL (74-106); Osmolality,Calculated 285.3 MOS/KG (273-304); Total Protein 7.1 G/DL (6.4-8.3)
[2019-10-21] MEDS ORDERED: ONDANSETRON 4 MG/2 ML VIAL IV STA (23:12)
[2019-10-21 23:17] LABS: Apearance,Urine CLEAR (Clear); Bilirubin,Urine Negative (Negative); Blood, Urine Negative (Negative); Glucose,Urine (UA) Negative (Negative); Hyaline Casts,Urine 4 /LPF (0-3); Ketones,Urine Negative (Negative); Mucus,Urine Occasional /LPF (Occasional); Nitrite,Urine Negative (Negative); Protein,Urine Negative; RBC,Urine <1 /HPF (0-4); Squamous Epithelial Cell,Urine Occasional /HPF (0-10); Urine Color Yellow (Yellow); Urine Specific Gravity 1.012 (1.001-1.035); Urine Urobilinogen < 2.0 EU/DL (0.2-1.0); WBC,Urine 1 /HPF (0-6)
[2019-10-22] MEDS ORDERED: PROMETHAZINE 25 MG TABLET PO PRN (01:47)
[2019-10-22] MEDS ORDERED: POLYVINYL ALCOHOL 1.4% OPH SOLN 15 ML BOTTLE BOTH EYES PRN (01:47)
[2019-10-22] MEDS ORDERED: ACETAMINOPHEN 325 MG TABLET PO PRN (01:47)
[2019-10-22] MEDS ORDERED: ONDANSETRON 4 MG/2 ML VIAL IV PRN (01:47)
[2019-10-22] MEDS: LACTATED RINGERS 1,000 ML IV SCH ×3 (04:31→18:15)
[2019-10-22] MEDS: LEVOTHYROXINE 88 MCG TABLET PO SCH (06:11)
[2019-10-22] MEDS ORDERED: Fluticasone Furoate-Vilanterol [Breo Ellipta] INH SCH (09:00)
[2019-10-22] MEDS: DOCUSATE SODIUM 100 MG CAPSULE PO SCH ×2 (10:50→20:49)
[2019-10-22] MEDS: cefTRIAXone 1,000 MG in SYRINGE 1 EACH IV SCH (11:07)
[2019-10-22] MEDS: GEMFIBROZIL 600 MG TABLET PO SCH ×2 (11:08→16:37)
[2019-10-22] MEDS: FERROUS SULFATE 325 MG TABLET PO SCH (11:08)
[2019-10-22] MEDS: POTASSIUM GLUCONATE 500 MG TABLET PO SCH ×2 (11:08→20:49)
[2019-10-22] MEDS: PANTOPRAZOLE 40 MG TABLET PO SCH (11:08)
[2019-10-22] MEDS: MULTIVITAMIN (OCUVITE) TABLET PO SCH ×2 (11:08→20:49)
[2019-10-22] MEDS: RIVASTIGMINE 4.6 MG/24 HR PATCH TRANSDERM SCH (11:09)
[2019-10-22] MEDS: MAGNESIUM CHLORIDE 64 MG TABLET PO SCH ×2 (11:09→20:48)
[2019-10-22] MEDS: ASPIRIN EC 81 MG TABLET PO SCH (12:24)
[2019-10-22] MEDS: AZITHROMYCIN INJ 500 MG in SODIUM CHLORIDE 0.9% 250 ML IV SCH (12:24)
[2019-10-22] MEDS: MULTIVITAMIN (CENTRUM) TABLET PO SCH (12:24)
[2019-10-22] MEDS: ROSUVASTATIN 20 MG TABLET PO SCH (12:24)
[2019-10-22] MEDS: FLUTICASONE 50 MCG NASAL SPRAY 16 GM BOTTLE BOTH NARES SCH (15:59)
[2019-10-22] MEDS: CLOPIDOGREL 75 MG TABLET PO SCH (20:48)
[2019-10-22] MEDS: MONTELUKAST 10 MG TABLET PO SCH (20:50)
[2019-10-23 04:52] LABS: Basophils % 0.6 % (0.0-0.8); Eosinophils # 0.3 10*3/uL (0.0-0.87); Eosinophils % 6.8 % (0.00-10.9); Hematocrit 27.4 VOL% (35.7-47.0); Hemoglobin 8.6 GM/DL (12.0-16.0); Immature Granulocytes % 0.6 %; Immature Granulocytes Absolute 0.03 #; Lymphocytes % 21.7 % (21.3-54.2); Mean Corpuscular HGB Conc 31.4 GM/DL (32-36); Mean Corpuscular Volume 98.6 FL (87-102); Mean Platelet Volume 10.7 FL (9.6-12.0); Monocytes % 11.7 % (1.7-12.7); Neutrophils % 58.6 % (38.7-73.9); Platelet Count 126 T/CUMM (130-400); Red Blood Count 2.78 MC/CUMM (3.8-5.5); Red Cell Distribution Width 12.7 % (9.3-17.3); White Blood Count 4.7 T/CUMM (4-12)
[2019-10-23 05:13] LABS: Calcium 8.2 MG/DL (8.5-10.1)
[2019-10-23] MEDS: LEVOTHYROXINE 88 MCG TABLET PO SCH (06:10)
[2019-10-23] MEDS: LACTATED RINGERS 1,000 ML IV SCH (06:59)
[2019-10-23] MEDS: POTASSIUM GLUCONATE 500 MG TABLET PO SCH ×2 (08:45→21:09)
[2019-10-23] MEDS: RIVASTIGMINE 4.6 MG/24 HR PATCH TRANSDERM SCH (08:45)
[2019-10-23] MEDS: MAGNESIUM CHLORIDE 64 MG TABLET PO SCH ×2 (08:45→21:10)
[2019-10-23] MEDS: MULTIVITAMIN (OCUVITE) TABLET PO SCH ×2 (08:47→21:10)
[2019-10-23] MEDS: ROSUVASTATIN 20 MG TABLET PO SCH (08:47)
[2019-10-23] MEDS: FERROUS SULFATE 325 MG TABLET PO SCH (08:48)
[2019-10-23] MEDS: DOCUSATE SODIUM 100 MG CAPSULE PO SCH ×2 (08:48→21:10)
[2019-10-23] MEDS: PANTOPRAZOLE 40 MG TABLET PO SCH (08:48)
[2019-10-23] MEDS: GEMFIBROZIL 600 MG TABLET PO SCH ×2 (08:48→16:17)
[2019-10-23] MEDS: cefTRIAXone 1,000 MG in SYRINGE 1 EACH IV SCH (08:49)
[2019-10-23] MEDS: FLUTICASONE 50 MCG NASAL SPRAY 16 GM BOTTLE BOTH NARES SCH (09:02)
[2019-10-23] MEDS ORDERED: MAGNESIUM HYDROXIDE SUSP 30 ML UDCUP PO ONE (09:16)
[2019-10-23] MEDS: MULTIVITAMIN (CENTRUM) TABLET PO SCH (12:07)
[2019-10-23] MEDS: ASPIRIN EC 81 MG TABLET PO SCH (12:07)
[2019-10-23] MEDS: AZITHROMYCIN INJ 500 MG in SODIUM CHLORIDE 0.9% 250 ML IV SCH (12:08)
[2019-10-23] MEDS: CLOPIDOGREL 75 MG TABLET PO SCH (18:01)
[2019-10-23] MEDS: MONTELUKAST 10 MG TABLET PO SCH (18:01)
[2019-10-24] MEDS: LEVOTHYROXINE 88 MCG TABLET PO SCH (06:12)
[2019-10-24] MEDS: DOCUSATE SODIUM 100 MG CAPSULE PO SCH ×2 (09:01→20:53)
[2019-10-24] MEDS: POTASSIUM GLUCONATE 500 MG TABLET PO SCH ×2 (09:01→22:39)
[2019-10-24] MEDS: MULTIVITAMIN (CENTRUM) TABLET PO SCH (09:01)
[2019-10-24] MEDS: MAGNESIUM CHLORIDE 64 MG TABLET PO SCH ×2 (09:01→20:54)
[2019-10-24] MEDS: FERROUS SULFATE 325 MG TABLET PO SCH (09:01)
[2019-10-24] MEDS: PANTOPRAZOLE 40 MG TABLET PO SCH (09:01)
[2019-10-24] MEDS: ROSUVASTATIN 20 MG TABLET PO SCH (09:01)
[2019-10-24] MEDS: MULTIVITAMIN (OCUVITE) TABLET PO SCH ×2 (09:01→20:53)
[2019-10-24] MEDS: ASPIRIN EC 81 MG TABLET PO SCH (09:01)
[2019-10-24] MEDS: GEMFIBROZIL 600 MG TABLET PO SCH ×2 (09:01→15:59)
[2019-10-24] MEDS: RIVASTIGMINE 4.6 MG/24 HR PATCH TRANSDERM SCH (09:02)
[2019-10-24] MEDS: FLUTICASONE 50 MCG NASAL SPRAY 16 GM BOTTLE BOTH NARES SCH (09:02)
[2019-10-24] MEDS: cefTRIAXone 1,000 MG in SYRINGE 1 EACH IV SCH (09:03)
[2019-10-24] MEDS ORDERED: MAGNESIUM HYDROXIDE SUSP 30 ML UDCUP PO ONE (09:04)
[2019-10-24] MEDS: AZITHROMYCIN INJ 500 MG in SODIUM CHLORIDE 0.9% 250 ML IV SCH (12:35)
[2019-10-24] MEDS ORDERED: MONTELUKAST 10 MG TABLET PO SCH (21:00)
[2019-10-24] MEDS ORDERED: CLOPIDOGREL 75 MG TABLET PO SCH (21:00)
[2019-10-25 05:23] LABS: Basophils % 0.6 % (0.0-0.8); Eosinophils # 0.5 10*3/uL (0.0-0.87); Eosinophils % 10.1 % (0.00-10.9); Hematocrit 30.2 VOL% (35.7-47.0); Hemoglobin 9.6 GM/DL (12.0-16.0); Immature Granulocytes % 0.4 %; Immature Granulocytes Absolute 0.02 #; Lymphocytes # 1.2 10*3/uL (1.4-4.0); Lymphocytes % 25.6 % (21.3-54.2); Mean Corpuscular HGB Conc 31.8 GM/DL (32-36); Mean Corpuscular Volume 97.7 FL (87-102); Mean Platelet Volume 10.8 FL (9.6-12.0); Monocytes % 10.4 % (1.7-12.7); Neutrophils % 52.9 % (38.7-73.9); Platelet Count 142 T/CUMM (130-400); Red Blood Count 3.09 MC/CUMM (3.8-5.5); Red Cell Distribution Width 12.6 % (9.3-17.3); White Blood Count 4.7 T/CUMM (4-12)
[2019-10-25 05:59] LABS: Calcium 8.8 MG/DL (8.5-10.1); Osmolality,Calculated 291.7 MOS/KG (273-304)
[2019-10-25] MEDS: LEVOTHYROXINE 88 MCG TABLET PO SCH (06:12)
[2019-10-25 07:00] LABS: Eosinophils 15 % (0-10); Hypochromasia 1+; Lymphocytes 24 % (20-55); Platelet Estimate Normal; Segmented Neutrophils 53 % (50-85); Total Cells Counted 100
[2019-10-25 07:01] LABS: Ovalocytes Slight
[2019-10-25 07:40] VITALS: BP 151/78
[2019-10-25] MEDS: POTASSIUM GLUCONATE 500 MG TABLET PO SCH (08:40)
[2019-10-25] MEDS: PANTOPRAZOLE 40 MG TABLET PO SCH (08:41)
[2019-10-25] MEDS: MULTIVITAMIN (CENTRUM) TABLET PO SCH (08:41)
[2019-10-25] MEDS: DOCUSATE SODIUM 100 MG CAPSULE PO SCH (08:41)
[2019-10-25] MEDS: MULTIVITAMIN (OCUVITE) TABLET PO SCH (08:41)
[2019-10-25] MEDS: cefTRIAXone 1,000 MG in SYRINGE 1 EACH IV SCH (08:41)
[2019-10-25] MEDS: ASPIRIN EC 81 MG TABLET PO SCH (08:41)
[2019-10-25] MEDS: ROSUVASTATIN 20 MG TABLET PO SCH (08:41)
[2019-10-25] MEDS: FERROUS SULFATE 325 MG TABLET PO SCH (08:41)
[2019-10-25] MEDS: GEMFIBROZIL 600 MG TABLET PO SCH (08:41)
[2019-10-25] MEDS: RIVASTIGMINE 4.6 MG/24 HR PATCH TRANSDERM SCH (08:41)
[2019-10-25] MEDS: MAGNESIUM CHLORIDE 64 MG TABLET PO SCH (08:41)
[2019-10-25] MEDS: FLUTICASONE 50 MCG NASAL SPRAY 16 GM BOTTLE BOTH NARES SCH (08:42)
== END 2019-10-25 13:45 | disposition home health service (06) | DRG 312 ==
LOC: EDBD → EDUNIT# → N.ED 21:18 → N.EDINP 10-22 00:20 → N.TELES 10-22 00:58
PROVIDERS: ADMIT Internal Medicine; ATTEND Internal Medicine

== ENCOUNTER 2020-05-28 17:03 | Observation (INO) ==
[2020-05-28] MEDS ORDERED: hydrALAZINE 20 MG/1 ML VIAL IV STA (17:28)
[2020-05-28] MEDS ORDERED: ACETAMINOPHEN 325 MG TABLET PO ONE (17:28)
[2020-05-28] MEDS ORDERED: ASPIRIN 325 MG TABLET PO STA (17:28)
[2020-05-28 18:41] LABS: Basophils # 0.1 10*3/uL (0.0-0.2); Eosinophils # 0.2 10*3/uL (0.0-0.87); Eosinophils % 4.1 % (0.00-10.9); Hematocrit 31.4 VOL% (35.7-47.0); Hemoglobin 10.3 GM/DL (12.0-16.0); Immature Granulocytes % 0.4 %; Immature Granulocytes Absolute 0.02 #; Lymphocytes # 0.9 10*3/uL (1.4-4.0); Lymphocytes % 18.4 % (21.3-54.2); Mean Corpuscular HGB Conc 32.8 GM/DL (32-36); Mean Corpuscular Volume 93.7 FL (87-102); Mean Platelet Volume 11.2 FL (9.6-12.0); Monocytes % 11.6 % (1.7-12.7); Neutrophils % 64.5 % (38.7-73.9); Platelet Count 198 T/CUMM (130-400); Red Blood Count 3.35 MC/CUMM (3.8-5.5); Red Cell Distribution Width 12.5 % (9.3-17.3); White Blood Count 4.9 T/CUMM (4-12)
[2020-05-28 18:51] LABS: PT Patient Result 10.8 SECS (9.8-11.9)
[2020-05-28 19:29] LABS: Alanine Aminotransferase 38 U/L (13-56); Alkaline Phosphatase 71 U/L (45-117); Aspartate Amino Transferase 88 U/L (0-37); Blood Urea Nitrogen 21 MG/DL (7-18); Calcium 8.7 MG/DL (8.5-10.1); Estimated Glom Filtration Rate 51 ML/MIN; Glucose 76 MG/DL (74-106); Osmolality,Calculated 258.1 MOS/KG (273-304); Total Protein 7.2 G/DL (6.4-8.3); Troponin I < 0.015 NG/ML (0.00-0.045)
[2020-05-28] MEDS ORDERED: SODIUM CHLORIDE 0.9% 500 ML IV STA (19:44)
[2020-05-28] MEDS ORDERED: ACETAMINOPHEN 325 MG TABLET PO PRN (19:58)
[2020-05-28] MEDS ORDERED: BISACODYL 5 MG TABLET PO PRN (19:58)
[2020-05-28] MEDS ORDERED: ONDANSETRON 4 MG/2 ML VIAL IV PRN (19:58)
[2020-05-28 20:25] LABS: Apearance,Urine CLEAR (Clear); Bilirubin,Urine Negative (Negative); Blood, Urine Negative (Negative); Glucose,Urine (UA) Negative (Negative); Ketones,Urine Negative (Negative); Nitrite,Urine Negative (Negative); Protein,Urine Negative; RBC,Urine 1 /HPF (0-4); Urine Color Straw (Yellow); Urine Specific Gravity 1.005 (1.001-1.035); Urine Urobilinogen < 2.0 EU/DL (0.2-1.0); WBC,Urine 1 /HPF (0-6)
[2020-05-28] MEDS: DOCUSATE SODIUM 100 MG CAPSULE PO SCH (22:11)
[2020-05-28] MEDS: ENOXAPARIN 40 MG/0.4 ML SYRINGE SUBCUT SCH (22:11)
[2020-05-28] MEDS: SODIUM CHLORIDE 0.9% 1,000 ML IV SCH (22:11)
[2020-05-29 05:11] LABS: Basophils % 0.8 % (0.0-0.8); Eosinophils # 0.2 10*3/uL (0.0-0.87); Eosinophils % 4.5 % (0.00-10.9); Hematocrit 29.6 VOL% (35.7-47.0); Hemoglobin 9.7 GM/DL (12.0-16.0); Immature Granulocytes % 0.3 %; Immature Granulocytes Absolute 0.01 #; Lymphocytes # 0.8 10*3/uL (1.4-4.0); Lymphocytes % 20.4 % (21.3-54.2); Mean Corpuscular HGB Conc 32.8 GM/DL (32-36); Mean Corpuscular Volume 91.4 FL (87-102); Mean Platelet Volume 10.6 FL (9.6-12.0); Monocytes % 13.5 % (1.7-12.7); Neutrophils % 60.5 % (38.7-73.9); Platelet Count 152 T/CUMM (130-400); Red Blood Count 3.24 MC/CUMM (3.8-5.5); Red Cell Distribution Width 12.2 % (9.3-17.3); White Blood Count 3.8 T/CUMM (4-12)
[2020-05-29 05:36] LABS: Bilirubin,Total 0.6 MG/DL (0.2-1.0); Calcium 8.5 MG/DL (8.5-10.1); Osmolality,Calculated 273.8 MOS/KG (273-304); Total Protein 6.2 G/DL (6.4-8.3)
[2020-05-29] MEDS: SODIUM CHLORIDE 0.9% 1,000 ML IV SCH ×2 (08:12→18:13)
[2020-05-29] MEDS ORDERED: [UNRECOGNIZED DRUG - OTHER] BOTH EYES PRN (08:35)
[2020-05-29] MEDS ORDERED: PROMETHAZINE 25 MG TABLET PO PRN (08:35)
[2020-05-29] MEDS: FLUTICASONE 50 MCG NASAL SPRAY 16 GM BOTTLE BOTH NARES SCH (09:40)
[2020-05-29] MEDS: RIVASTIGMINE 4.6 MG/24 HR PATCH TRANSDERM SCH (09:42)
[2020-05-29] MEDS: MAGNESIUM CHLORIDE 64 MG TABLET PO SCH ×2 (09:43→20:28)
[2020-05-29] MEDS: DOCUSATE SODIUM 100 MG CAPSULE PO SCH ×2 (09:43→20:27)
[2020-05-29] MEDS: FERROUS SULFATE 325 MG TABLET PO SCH (09:43)
[2020-05-29] MEDS: ROSUVASTATIN 20 MG TABLET PO SCH (09:43)
[2020-05-29] MEDS: Fluticasone Furoate-Vilanterol [Breo Ellipta] 1 PUFF INH SCH (09:43)
[2020-05-29] MEDS: PANTOPRAZOLE 40 MG TABLET PO SCH (09:43)
[2020-05-29] MEDS: CLOPIDOGREL 75 MG TABLET PO SCH (09:43)
[2020-05-29] MEDS: MULTIVITAMIN (OCUVITE) TABLET PO SCH ×2 (09:46→20:27)
[2020-05-29] MEDS: POTASSIUM GLUCONATE 500 MG TABLET PO SCH (09:46)
[2020-05-29] MEDS: MULTIVITAMIN (CENTRUM) TABLET PO SCH (11:31)
[2020-05-29] MEDS: ASPIRIN EC 81 MG TABLET PO SCH (11:31)
[2020-05-29] MEDS: gemfibroziL 600 MG TABLET PO SCH (17:22)
[2020-05-29] MEDS: MONTELUKAST 10 MG TABLET PO SCH (20:26)
[2020-05-29] MEDS: LACTULOSE 20 GM/30 ML UDCUP PO SCH (20:27)
[2020-05-29] MEDS: ENOXAPARIN 40 MG/0.4 ML SYRINGE SUBCUT SCH (20:28)
[2020-05-29] MEDS: BIMATOPROST 0.01% OPH SOLN 2.5 ML BOTTLE LEFT EYE SCH (22:04)
[2020-05-30] MEDS: SODIUM CHLORIDE 0.9% 1,000 ML IV SCH ×2 (05:13→11:39)
[2020-05-30] MEDS: LEVOTHYROXINE 88 MCG TABLET PO SCH (05:58)
[2020-05-30] MEDS: FLUTICASONE 50 MCG NASAL SPRAY 16 GM BOTTLE BOTH NARES SCH (08:51)
[2020-05-30] MEDS: MAGNESIUM CHLORIDE 64 MG TABLET PO SCH ×2 (08:53→21:25)
[2020-05-30] MEDS: gemfibroziL 600 MG TABLET PO SCH ×2 (08:53→17:25)
[2020-05-30] MEDS: POTASSIUM GLUCONATE 500 MG TABLET PO SCH (08:53)
[2020-05-30] MEDS: ROSUVASTATIN 20 MG TABLET PO SCH (08:53)
[2020-05-30] MEDS: PANTOPRAZOLE 40 MG TABLET PO SCH (08:54)
[2020-05-30] MEDS: CLOPIDOGREL 75 MG TABLET PO SCH (08:54)
[2020-05-30] MEDS: FERROUS SULFATE 325 MG TABLET PO SCH (08:54)
[2020-05-30] MEDS: RIVASTIGMINE 4.6 MG/24 HR PATCH TRANSDERM SCH (08:54)
[2020-05-30] MEDS: DOCUSATE SODIUM 100 MG CAPSULE PO SCH ×2 (08:54→21:25)
[2020-05-30] MEDS: MULTIVITAMIN (OCUVITE) TABLET PO SCH ×2 (08:54→21:25)
[2020-05-30] MEDS: Fluticasone Furoate-Vilanterol [Breo Ellipta] 1 PUFF INH SCH (10:13)
[2020-05-30] MEDS: MULTIVITAMIN (CENTRUM) TABLET PO SCH (11:39)
[2020-05-30] MEDS: ASPIRIN EC 81 MG TABLET PO SCH (11:39)
[2020-05-30] MEDS ORDERED: POTASSIUM CHLORIDE 20 MEQ TABLET PO ONE (20:46)
[2020-05-30] MEDS: MONTELUKAST 10 MG TABLET PO SCH (21:25)
[2020-05-30] MEDS: LACTULOSE 20 GM/30 ML UDCUP PO SCH (21:26)
[2020-05-30] MEDS: ENOXAPARIN 40 MG/0.4 ML SYRINGE SUBCUT SCH (21:26)
[2020-05-31] MEDS: BIMATOPROST 0.01% OPH SOLN 2.5 ML BOTTLE LEFT EYE SCH (00:28)
[2020-05-31] MEDS: LEVOTHYROXINE 88 MCG TABLET PO SCH (05:52)
[2020-05-31] MEDS: SODIUM CHLORIDE 0.9% 1,000 ML IV SCH (06:24)
[2020-05-31 07:05] LABS: Calcium 9.4 MG/DL (8.5-10.1); Osmolality,Calculated 285.3 MOS/KG (273-304)
[2020-05-31 07:46] VITALS: BP 169/87
[2020-05-31] MEDS: MULTIVITAMIN (OCUVITE) TABLET PO SCH (09:26)
[2020-05-31] MEDS: RIVASTIGMINE 4.6 MG/24 HR PATCH TRANSDERM SCH (09:27)
[2020-05-31] MEDS: ROSUVASTATIN 20 MG TABLET PO SCH (09:27)
[2020-05-31] MEDS: POTASSIUM GLUCONATE 500 MG TABLET PO SCH (09:27)
[2020-05-31] MEDS: FERROUS SULFATE 325 MG TABLET PO SCH (09:28)
[2020-05-31] MEDS: gemfibroziL 600 MG TABLET PO SCH (09:28)
[2020-05-31] MEDS: MAGNESIUM CHLORIDE 64 MG TABLET PO SCH (09:28)
[2020-05-31] MEDS: DOCUSATE SODIUM 100 MG CAPSULE PO SCH (09:28)
[2020-05-31] MEDS: CLOPIDOGREL 75 MG TABLET PO SCH (09:28)
[2020-05-31] MEDS: FLUTICASONE 50 MCG NASAL SPRAY 16 GM BOTTLE BOTH NARES SCH (09:28)
[2020-05-31] MEDS: PANTOPRAZOLE 40 MG TABLET PO SCH (09:29)
== END 2020-05-31 11:31 | disposition home or self-care (01) ==
LOC: EDBD → EDUNIT# → N.EDINP 17:03 → N.ED 17:03 → N.3E 20:19
PROVIDERS: ADMIT Internal Medicine; ATTEND Internal Medicine

== ENCOUNTER 2020-06-07 16:44 | Observation (INO) ==
[2020-06-07 18:04] LABS: Basophils # 0.1 10*3/uL (0.0-0.2); Eosinophils # 0.3 10*3/uL (0.0-0.87); Eosinophils % 5.1 % (0.00-10.9); Hematocrit 33.1 VOL% (35.7-47.0); Hemoglobin 10.6 GM/DL (12.0-16.0); Immature Granulocytes % 0.2 %; Immature Granulocytes Absolute 0.01 #; Lymphocytes # 1.2 10*3/uL (1.4-4.0); Mean Corpuscular Volume 96.2 FL (87-102); Mean Platelet Volume 9.7 FL (9.6-12.0); Monocytes % 11.3 % (1.7-12.7); Neutrophils % 58.4 % (38.7-73.9); Platelet Count 190 T/CUMM (130-400); Red Blood Count 3.44 MC/CUMM (3.8-5.5); Red Cell Distribution Width 12.5 % (9.3-17.3); White Blood Count 5.1 T/CUMM (4-12)
[2020-06-07 18:15] LABS: PT Patient Result 10.5 SECS (9.8-11.9)
[2020-06-07 18:25] LABS: Albumin 3.3 G/DL (3.4-5.0); Bilirubin,Total 0.5 MG/DL (0.2-1.0); Calcium 8.9 MG/DL (8.5-10.1); Osmolality,Calculated 266.4 MOS/KG (273-304); Total Protein 6.8 G/DL (6.4-8.3)
[2020-06-07 18:42] LABS: Apearance,Urine CLEAR (Clear); Bilirubin,Urine Negative (Negative); Blood, Urine Negative (Negative); Glucose,Urine (UA) Negative (Negative); Ketones,Urine Negative (Negative); Nitrite,Urine Negative (Negative); Protein,Urine Negative; RBC,Urine <1 /HPF (0-4); Urine Color Straw (Yellow); Urine Specific Gravity 1.005 (1.001-1.035); Urine Urobilinogen < 2.0 EU/DL (0.2-1.0); WBC,Urine <1 /HPF (0-6)
[2020-06-07] MEDS ORDERED: LEVOFLOXACIN INJ 500 MG in PREMIX 1 EACH IV STA (18:42)
[2020-06-07] MEDS ORDERED: ONDANSETRON 4 MG/2 ML VIAL IV PRN (19:23)
[2020-06-07] MEDS ORDERED: hydrALAZINE 20 MG/1 ML VIAL IV ONE (19:25)
[2020-06-07] MEDS: DEXTROSE 5% 1,000 ML IV SCH (22:15)
[2020-06-08 05:33] LABS: Basophils % 0.6 % (0.0-0.8); Eosinophils # 0.2 10*3/uL (0.0-0.87); Eosinophils % 6.3 % (0.00-10.9); Hematocrit 31.1 VOL% (35.7-47.0); Hemoglobin 10.2 GM/DL (12.0-16.0); Immature Granulocytes % 0.3 %; Immature Granulocytes Absolute 0.01 #; Lymphocytes # 0.7 10*3/uL (1.4-4.0); Lymphocytes % 19.4 % (21.3-54.2); Mean Corpuscular HGB Conc 32.8 GM/DL (32-36); Mean Corpuscular Volume 92.8 FL (87-102); Mean Platelet Volume 10.5 FL (9.6-12.0); Monocytes % 12.5 % (1.7-12.7); Neutrophils % 60.9 % (38.7-73.9); Platelet Count 183 T/CUMM (130-400); Red Blood Count 3.35 MC/CUMM (3.8-5.5); Red Cell Distribution Width 12.6 % (9.3-17.3); White Blood Count 3.5 T/CUMM (4-12)
[2020-06-08 06:01] LABS: Bilirubin,Total 0.7 MG/DL (0.2-1.0); Calcium 8.5 MG/DL (8.5-10.1); Osmolality,Calculated 276.5 MOS/KG (273-304); Total Protein 6.4 G/DL (6.4-8.3)
[2020-06-08] MEDS ORDERED: GLYCERIN BOTH EYES PRN (08:58)
[2020-06-08] MEDS ORDERED: PROMETHAZINE 25 MG TABLET PO PRN (08:58)
[2020-06-08] MEDS ORDERED: NAPHAZOLINE BOTH EYES PRN (08:58)
[2020-06-08] MEDS ORDERED: BISACODYL 5 MG TABLET PO PRN (08:58)
[2020-06-08] MEDS ORDERED: NF- (Fluticasone Furoate-Vilanterol [Breo Ellipta] 1 PUFF) INH SCH (09:00)
[2020-06-08] MEDS ORDERED: POTASSIUM GLUCONATE PO SCH (09:00)
[2020-06-08] MEDS ORDERED: RIVASTIGMINE 4.6 MG/24 HR PATCH TRANSDERM SCH ×2 (09:00→21:00)
[2020-06-08] MEDS: MAGNESIUM CHLORIDE 64 MG TABLET PO SCH ×2 (09:51→20:47)
[2020-06-08] MEDS: MULTIVITAMIN (OCUVITE) TABLET PO SCH ×2 (09:51→20:47)
[2020-06-08] MEDS: ROSUVASTATIN 20 MG TABLET PO SCH (09:51)
[2020-06-08] MEDS: PANTOPRAZOLE 40 MG TABLET PO SCH (09:51)
[2020-06-08] MEDS: CLOPIDOGREL 75 MG TABLET PO SCH (09:51)
[2020-06-08] MEDS: FERROUS SULFATE 325 MG TABLET PO SCH (09:51)
[2020-06-08] MEDS ORDERED: traMADol 50 MG TABLET PO PRN (10:10)
[2020-06-08] MEDS: FLUTICASONE 50 MCG NASAL SPRAY 16 GM BOTTLE BOTH NARES SCH (11:18)
[2020-06-08] MEDS: PANTOPRAZOLE 40 MG VIAL IV SCH (11:19)
[2020-06-08] MEDS: DEXTROSE 5% 1,000 ML IV SCH (11:25)
[2020-06-08] MEDS: MULTIVITAMIN (CENTRUM) TABLET PO SCH (13:19)
[2020-06-08] MEDS: ASPIRIN EC 81 MG TABLET PO SCH (13:19)
[2020-06-08] MEDS: gemfibroziL 600 MG TABLET PO SCH (17:38)
[2020-06-08] MEDS ORDERED: LACTULOSE 20 GM/30 ML UDCUP PO SCH (21:00)
[2020-06-08] MEDS ORDERED: BIMATOPROST 0.01% OPH SOLN 2.5 ML BOTTLE LEFT EYE SCH (21:00)
[2020-06-08] MEDS ORDERED: MONTELUKAST 10 MG TABLET PO SCH (21:00)
[2020-06-09] MEDS: DEXTROSE 5% 1,000 ML IV SCH (04:07)
[2020-06-09 06:50] LABS: Calcium 9.1 MG/DL (8.5-10.1); Osmolality,Calculated 274.7 MOS/KG (273-304)
[2020-06-09] MEDS ORDERED: LEVOTHYROXINE 88 MCG TABLET PO SCH (07:00)
[2020-06-09] MEDS ORDERED: RIVASTIGMINE 9.5 MG/24 HR PATCH TRANSDERM SCH (09:00)
[2020-06-09] MEDS: gemfibroziL 600 MG TABLET PO SCH (09:21)
[2020-06-09] MEDS: MULTIVITAMIN (OCUVITE) TABLET PO SCH (09:21)
[2020-06-09] MEDS: MAGNESIUM CHLORIDE 64 MG TABLET PO SCH (09:21)
[2020-06-09] MEDS: ROSUVASTATIN 20 MG TABLET PO SCH (09:21)
[2020-06-09] MEDS: POTASSIUM CHLORIDE 20 MEQ TABLET PO PRN ×3 (09:21→13:25)
[2020-06-09] MEDS: CLOPIDOGREL 75 MG TABLET PO SCH (09:22)
[2020-06-09] MEDS: PANTOPRAZOLE 40 MG TABLET PO SCH (09:22)
[2020-06-09] MEDS: FERROUS SULFATE 325 MG TABLET PO SCH (09:22)
[2020-06-09] MEDS: PANTOPRAZOLE 40 MG VIAL IV SCH (09:23)
[2020-06-09] MEDS: FLUTICASONE 50 MCG NASAL SPRAY 16 GM BOTTLE BOTH NARES SCH (09:28)
[2020-06-09] MEDS: MULTIVITAMIN (CENTRUM) TABLET PO SCH (11:15)
[2020-06-09] MEDS: ASPIRIN EC 81 MG TABLET PO SCH (11:15)
[2020-06-09 12:12] VITALS: BP 137/74
== END 2020-06-09 13:43 | disposition hospice, home (50) ==
LOC: EDBD → EDUNIT# → N.ED 16:44 → N.EDINP 16:44 → N.TELES 21:51 → N.4E 06-08 11:48
PROVIDERS: ADMIT Internal Medicine; ATTEND Internal Medicine